=== PATIENT | male | born 1970 | race Caucasian/White ===

== ENCOUNTER 2018-09-25 19:49 | Emergency (ER) | payer MEDICAID ==
[~2018-09-25] VITALS: Ht 167.6 cm; Wt 72.6 kg
[2018-09-25 19:55] VITALS: Ht 167.6 cm; Wt 72.6 kg
[2018-09-25 22:53] VITALS: BP 125/68
== END 2018-09-25 22:53 | disposition home or self-care (01) ==
LOC: ED 19:49
DX: J98.01 Acute bronchospasm (principal); R07.89 Other chest pain; F17.210 Nicotine dependence, cigarettes, uncomplicated
CPT/HCPCS: 99406; J2930; J7613; J7644